=== PATIENT | female | born 1965 | race Caucasian/White ===

== ENCOUNTER 2022-04-30 11:10 | Outpatient (REF) | payer OTHER, SELFPAY ==
[2022-04-30 11:45] LABS: COVID-19 Test Negative (Negative); IDNOW Serial# 16C4AD1C
== END 2022-04-30 11:11 | disposition home or self-care (01) ==
LOC: HO.LAB 11:10
PROVIDERS: Visit Provider Internal Medicine
DX: Z20.822 Contact with and (suspected) exposure to COVID-19 (principal)
CPT/HCPCS: 87635; C9803